=== PATIENT | male | born 1990 | race African-American/Black ===

== ENCOUNTER 2023-07-19 11:52 | Inpatient (IN) | payer OTHER ==
[2023-07-19] MEDS ORDERED: ACETAMINOPHEN 325 MG TABLET (FP) PO PRN (12:46)
[2023-07-19] MEDS ORDERED: guaiFENesin 600 MG TABLET.ER (FP) PO PRN (12:46)
[2023-07-19] MEDS ORDERED: BISMUTH SUBSALICYLATE 262 MG/15 ML BTL PO PRN (12:46)
[2023-07-19] MEDS ORDERED: BENZONATATE 200 MG CAPSULE PO PRN (12:46)
[2023-07-19] MEDS ORDERED: METHOCARBAMOL 500 MG TABLET PO PRN (12:46)
[2023-07-19] MEDS ORDERED: IBUPROFEN 600 MG TABLET (FP) PO PRN (12:46)
[2023-07-19] MEDS ORDERED: IBUPROFEN 400 MG TABLET (FP) PO PRN (12:46)
[2023-07-19] MEDS ORDERED: NALOXONE HCL (KLOXXADO) 8 MG SPRAY NS PRN (12:46)
[2023-07-19] MEDS ORDERED: MAGNESIUM HYDROX 2400MG/30ML ORAL SUSPENSION 30 ML CUP PO PRN (12:46)
[2023-07-19] MEDS ORDERED: LOPERAMIDE HCL 2 MG CAPSULE PO PRN (12:46)
[2023-07-19] MEDS ORDERED: NALOXONE HCL 0.4 MG/ML VIAL IM PRN (12:46)
[2023-07-19] MEDS ORDERED: BENZOCAINE/MENTHOL (CHLORASEPTIC ) LOZENGE MM PRN (12:46)
[2023-07-19] MEDS ORDERED: ONDANSETRON *ODT* 4 MG TABLET SL PRN (12:46)
[2023-07-19] MEDS ORDERED: MAG HYDROX/AL HYDROX/SIMETH 30 ML UNIT-DOSE CUP PO PRN (12:46)
[2023-07-19] MEDS ORDERED: POLYETHYLENE GLYCOL (HEALTHYLAX) 3350 17 GM PACKET PO PRN (12:46)
[2023-07-19] MEDS ORDERED: chlordiazePOXIDE HCL 25 MG CAPSULE PO PRN (12:48)
[2023-07-19 16:05] VITALS: BMI 24.5
[2023-07-19] MEDS: chlordiazePOXIDE HCL 25 MG CAPSULE PO SCH ×2 (17:04→22:09)
[2023-07-19] MEDS: THIAMINE HCL 100 MG TABLET (FP) PO SCH (22:09)
[2023-07-19] MEDS: MELATONIN 5 MG TABLETS PO SCH (22:09)
[2023-07-20] MEDS: chlordiazePOXIDE HCL 25 MG CAPSULE PO SCH ×4 (05:33→22:15)
[2023-07-20] MEDS: PRENATAL VITAMINS W/ FOLIC ACID TABLET (FP) PO SCH (10:20)
[2023-07-20 10:37] LABS: POTASSIUM 3.5 mmol/L (3.5-5.1)
[2023-07-20 10:44] LABS: HEMATOCRIT 37.5 % (35.4-49); HEMOGLOBIN 12.7 GM/dL (11.7-16.9); MCH 36.6 pg (25.7-33.7); MCHC 33.9 g/dl (32.0-35.9); MEAN CELL VOLUME 107.9 fl (80-96); MEAN PLT VOLUME 8.4 fl (7.5-11.1); PLATELET COUNT 145 10^3/uL (134-434); RBC 3.47 M/mm3 (4.00-5.60); RDW 16.9 % (11.9-15.9); WHITE BLOOD COUNT 5.3 K/mm3 (4.0-10.0)
[2023-07-20 10:59] LABS: ALBUMIN 3.9 g/dl (3.4-5.0)
[2023-07-20 11:01] LABS: BILIRUBIN,TOTAL 1.1 mg/dL (0.2-1)
[2023-07-20] MEDS: amLODIPine BESYLATE 2.5 MG TABLET (FP) PO SCH (11:01)
[2023-07-20 11:02] LABS: BLOOD UREA NITROGEN 8.4 mg/dL (7-18); CALCIUM 9.1 mg/dL (8.5-10.1); CREATININE 0.8 mg/dL (0.55-1.3)
[2023-07-20] MEDS: hydrOXYzine PAMOATE 25 MG CAPSULE (FP) PO PRN (11:03)
[2023-07-20 11:10] LABS: TOT PROT 7.3 g/dl (6.4-8.2)
[2023-07-20] MEDS: THIAMINE HCL 100 MG TABLET (FP) PO SCH (22:15)
[2023-07-20] MEDS: MELATONIN 5 MG TABLETS PO SCH (22:15)
[2023-07-21] MEDS ORDERED: chlordiazePOXIDE HCL 25 MG CAPSULE PO SCH (05:00)
[2023-07-21] MEDS ORDERED: LORazepam 1 MG TABLET PO PRN (09:47)
[2023-07-21] MEDS: amLODIPine BESYLATE 2.5 MG TABLET (FP) PO SCH (10:10)
[2023-07-21] MEDS: hydrOXYzine PAMOATE 25 MG CAPSULE (FP) PO PRN ×2 (10:10→18:25)
[2023-07-21] MEDS: PRENATAL VITAMINS W/ FOLIC ACID TABLET (FP) PO SCH (10:10)
[2023-07-21] MEDS: LORazepam 2 MG TABLET PO SCH ×4 (10:10→23:04)
[2023-07-21] MEDS: MELATONIN 5 MG TABLETS PO SCH (22:03)
[2023-07-21] MEDS: THIAMINE HCL 100 MG TABLET (FP) PO SCH (22:03)
[2023-07-22] MEDS ORDERED: chlordiazePOXIDE HCL 10 MG CAPSULE PO PRN
[2023-07-22] MEDS ORDERED: chlordiazePOXIDE HCL 10 MG CAPSULE PO SCH (05:00)
[2023-07-22] MEDS: LORazepam 1 MG TABLET PO SCH ×3 (05:55→17:30)
[2023-07-22] MEDS: hydrOXYzine PAMOATE 25 MG CAPSULE (FP) PO PRN (10:18)
[2023-07-22] MEDS: amLODIPine BESYLATE 2.5 MG TABLET (FP) PO SCH (10:19)
[2023-07-22] MEDS: PRENATAL VITAMINS W/ FOLIC ACID TABLET (FP) PO SCH (10:19)
[2023-07-22 18:10] VITALS: BP 123/75; PULSE 66; RESP 16; TEMP 97.8
[2023-07-23] MEDS ORDERED: LORazepam 0.5 MG TABLET PO PRN
[2023-07-23] MEDS ORDERED: LORazepam 0.5 MG TABLET PO SCH (05:00)
[2023-07-23] MEDS ORDERED: chlordiazePOXIDE HCL 10 MG CAPSULE PO SCH (05:00)
[2023-07-24] MEDS ORDERED: LORazepam 0.5 MG TABLET PO ONE (05:00)
[2023-07-24] MEDS ORDERED: chlordiazePOXIDE HCL 10 MG CAPSULE PO ONE (05:00)
== END 2023-07-22 17:55 | disposition left against medical advice (07) | DRG 770 ==
LOC: YASAS 11:52 → Y6N 13:38
PROVIDERS: ADMIT Allergy & Immunology; ATTEND Surgery
PROC: HZ2ZZZZ Detoxification Services for Substance Abuse Treatment (ICD-10-PCS; principal; 2023-07-19)
DX: F10.230 Alcohol dependence with withdrawal, uncomplicated (principal); F12.20 Cannabis dependence, uncomplicated; F10.282 Alcohol dependence with alcohol-induced sleep disorder; I10 Essential (primary) hypertension; Z28.310 Unvaccinated for COVID-19; Z28.9 Immunization not carried out for unspecified reason; Z91.410 Personal history of adult physical and sexual abuse
CPT/HCPCS: 36415; 80053; 80307; 85027; 86780; 87635; 87811; 93005; 93010

== ENCOUNTER 2023-07-25 18:12 | Inpatient (IN) | payer OTHER ==
[2023-07-25 18:37] VITALS: BMI 24.4
[2023-07-25] MEDS ORDERED: POLYETHYLENE GLYCOL (HEALTHYLAX) 3350 17 GM PACKET PO PRN (19:56)
[2023-07-25] MEDS ORDERED: LOPERAMIDE HCL 2 MG CAPSULE PO PRN (19:56)
[2023-07-25] MEDS ORDERED: BENZOCAINE/MENTHOL (CHLORASEPTIC ) LOZENGE MM PRN (19:56)
[2023-07-25] MEDS ORDERED: IBUPROFEN 400 MG TABLET (FP) PO PRN (19:56)
[2023-07-25] MEDS ORDERED: MAGNESIUM HYDROX 2400MG/30ML ORAL SUSPENSION 30 ML CUP PO PRN (19:56)
[2023-07-25] MEDS ORDERED: guaiFENesin 600 MG TABLET.ER (FP) PO PRN (19:56)
[2023-07-25] MEDS ORDERED: BENZONATATE 200 MG CAPSULE PO PRN (19:56)
[2023-07-25] MEDS ORDERED: DOCUSATE SODIUM 100 MG CAPSULE (FP) PO PRN (19:56)
[2023-07-25] MEDS ORDERED: COLLOIDAL OATMEAL 1 BAR EACH TP PRN (19:56)
[2023-07-25] MEDS ORDERED: ACETAMINOPHEN 325 MG TABLET (FP) PO PRN (19:56)
[2023-07-25] MEDS ORDERED: MAG HYDROX/AL HYDROX/SIMETH 30 ML UNIT-DOSE CUP PO PRN (19:56)
[2023-07-25] MEDS ORDERED: P-EPHED 60MG/TRIPROLIDI 2.5MG TABLET PO PRN (19:56)
[2023-07-25] MEDS ORDERED: IBUPROFEN 400 MG TABLET (FP) PO ONE (21:08)
[2023-07-25] MEDS: THIAMINE HCL 100 MG TABLET (FP) PO SCH (22:58)
[2023-07-25] MEDS: MELATONIN 5 MG TABLETS PO SCH (22:58)
[2023-07-25] MEDS ORDERED: MELATONIN 5 MG TABLETS ONE (23:00)
[2023-07-26] MEDS: IBUPROFEN 600 MG TABLET (FP) PO PRN ×2 (09:12→17:09)
[2023-07-26] MEDS: METHOCARBAMOL 500 MG TABLET PO PRN (09:13)
[2023-07-26] MEDS: PRENATAL VITAMINS W/ FOLIC ACID TABLET (FP) PO SCH (09:13)
[2023-07-26] MEDS: hydrOXYzine PAMOATE 25 MG CAPSULE (FP) PO PRN ×2 (09:14→21:24)
[2023-07-26] MEDS: THIAMINE HCL 100 MG TABLET (FP) PO SCH (21:23)
[2023-07-26] MEDS: MELATONIN 5 MG TABLETS PO SCH (21:23)
[2023-07-27] MEDS: PRENATAL VITAMINS W/ FOLIC ACID TABLET (FP) PO SCH (09:57)
[2023-07-27] MEDS: METHOCARBAMOL 500 MG TABLET PO PRN ×2 (09:58→21:19)
[2023-07-27] MEDS: hydrOXYzine PAMOATE 25 MG CAPSULE (FP) PO PRN (09:58)
[2023-07-27] MEDS: THIAMINE HCL 100 MG TABLET (FP) PO SCH (21:19)
[2023-07-27] MEDS: MELATONIN 5 MG TABLETS PO SCH (21:19)
[2023-07-28 08:26] LABS: POTASSIUM 3.9 mmol/L (3.5-5.1)
[2023-07-28 08:28] LABS: CALCIUM 9.1 mg/dL (8.5-10.1)
[2023-07-28 08:29] LABS: ALBUMIN 3.2 g/dl (3.4-5.0)
[2023-07-28 08:32] LABS: CREATININE 0.7 mg/dL (0.55-1.3); HEMOGLOBIN 11.3 GM/dL (11.7-16.9); MCH 36.7 pg (25.7-33.7); MCHC 33.3 g/dl (32.0-35.9); MEAN CELL VOLUME 110.2 fl (80-96); MEAN PLT VOLUME 7.9 fl (7.5-11.1); PLATELET COUNT 365 10^3/uL (134-434); RBC 3.09 M/mm3 (4.00-5.60); WHITE BLOOD COUNT 6.1 K/mm3 (4.0-10.0)
[2023-07-28 08:33] LABS: TOT PROT 6.4 g/dl (6.4-8.2)
[2023-07-28 08:34] LABS: BILIRUBIN,TOTAL 0.3 mg/dL (0.2-1)
[2023-07-28 09:17] LABS: ANISOCYTOSIS 0; MACROCYTOSIS 2+
[2023-07-28] MEDS: PRENATAL VITAMINS W/ FOLIC ACID TABLET (FP) PO SCH (09:59)
[2023-07-28] MEDS: MELATONIN 5 MG TABLETS PO SCH (21:21)
[2023-07-28] MEDS: THIAMINE HCL 100 MG TABLET (FP) PO SCH (21:21)
[2023-07-28] MEDS: METHOCARBAMOL 500 MG TABLET PO PRN (21:21)
[2023-07-29] MEDS: PRENATAL VITAMINS W/ FOLIC ACID TABLET (FP) PO SCH (09:57)
[2023-07-29] MEDS: FERROUS SO4 325 MG TABLET (FP) PO SCH (09:57)
[2023-07-29] MEDS: LACTULOSE 20 GM/30 ML UDC (FOR ORAL USE ONLY) PO SCH ×2 (14:38→21:28)
[2023-07-29] MEDS: MELATONIN 5 MG TABLETS PO SCH (21:28)
[2023-07-29] MEDS: THIAMINE HCL 100 MG TABLET (FP) PO SCH (21:28)
[2023-07-30] MEDS: LACTULOSE 20 GM/30 ML UDC (FOR ORAL USE ONLY) PO SCH ×3 (06:39→21:18)
[2023-07-30] MEDS: PRENATAL VITAMINS W/ FOLIC ACID TABLET (FP) PO SCH (09:52)
[2023-07-30] MEDS: FERROUS SO4 325 MG TABLET (FP) PO SCH (09:52)
[2023-07-30] MEDS: THIAMINE HCL 100 MG TABLET (FP) PO SCH (21:18)
[2023-07-30] MEDS: MELATONIN 5 MG TABLETS PO SCH (21:18)
[2023-07-31] MEDS: LACTULOSE 20 GM/30 ML UDC (FOR ORAL USE ONLY) PO SCH ×3 (06:46→21:26)
[2023-07-31] MEDS: FERROUS SO4 325 MG TABLET (FP) PO SCH (09:15)
[2023-07-31] MEDS: PRENATAL VITAMINS W/ FOLIC ACID TABLET (FP) PO SCH (09:15)
[2023-07-31] MEDS: THIAMINE HCL 100 MG TABLET (FP) PO SCH (21:26)
[2023-07-31] MEDS: MELATONIN 5 MG TABLETS PO SCH (21:26)
[2023-08-01] MEDS: LACTULOSE 20 GM/30 ML UDC (FOR ORAL USE ONLY) PO SCH ×3 (06:47→21:15)
[2023-08-01] MEDS: PRENATAL VITAMINS W/ FOLIC ACID TABLET (FP) PO SCH (09:48)
[2023-08-01] MEDS: FERROUS SO4 325 MG TABLET (FP) PO SCH (09:48)
[2023-08-01] MEDS: hydrOXYzine PAMOATE 25 MG CAPSULE (FP) PO PRN (14:07)
[2023-08-01] MEDS: THIAMINE HCL 100 MG TABLET (FP) PO SCH (21:15)
[2023-08-01] MEDS: MELATONIN 5 MG TABLETS PO SCH (21:15)
[2023-08-02] MEDS: LACTULOSE 20 GM/30 ML UDC (FOR ORAL USE ONLY) PO SCH ×3 (07:00→21:55)
[2023-08-02] MEDS: PRENATAL VITAMINS W/ FOLIC ACID TABLET (FP) PO SCH (09:47)
[2023-08-02] MEDS: FERROUS SO4 325 MG TABLET (FP) PO SCH (09:47)
[2023-08-02] MEDS: MELATONIN 5 MG TABLETS PO SCH (21:55)
[2023-08-02] MEDS: THIAMINE HCL 100 MG TABLET (FP) PO SCH (21:55)
[2023-08-03] MEDS: LACTULOSE 20 GM/30 ML UDC (FOR ORAL USE ONLY) PO SCH ×3 (06:26→21:10)
[2023-08-03] MEDS: PRENATAL VITAMINS W/ FOLIC ACID TABLET (FP) PO SCH (09:37)
[2023-08-03] MEDS: FERROUS SO4 325 MG TABLET (FP) PO SCH (09:37)
[2023-08-03] MEDS: MELATONIN 5 MG TABLETS PO SCH (21:10)
[2023-08-03] MEDS: THIAMINE HCL 100 MG TABLET (FP) PO SCH (21:10)
[2023-08-04] MEDS: LACTULOSE 20 GM/30 ML UDC (FOR ORAL USE ONLY) PO SCH ×3 (06:28→21:11)
[2023-08-04] MEDS: FERROUS SO4 325 MG TABLET (FP) PO SCH (10:17)
[2023-08-04] MEDS: PRENATAL VITAMINS W/ FOLIC ACID TABLET (FP) PO SCH (10:17)
[2023-08-04] MEDS: THIAMINE HCL 100 MG TABLET (FP) PO SCH (21:11)
[2023-08-04] MEDS: MELATONIN 5 MG TABLETS PO SCH (21:11)
[2023-08-05] MEDS: LACTULOSE 20 GM/30 ML UDC (FOR ORAL USE ONLY) PO SCH ×3 (06:38→21:17)
[2023-08-05] MEDS: FERROUS SO4 325 MG TABLET (FP) PO SCH (10:00)
[2023-08-05] MEDS: PRENATAL VITAMINS W/ FOLIC ACID TABLET (FP) PO SCH (10:00)
[2023-08-05] MEDS: THIAMINE HCL 100 MG TABLET (FP) PO SCH (21:17)
[2023-08-05] MEDS: MELATONIN 5 MG TABLETS PO SCH (21:17)
[2023-08-06] MEDS: LACTULOSE 20 GM/30 ML UDC (FOR ORAL USE ONLY) PO SCH ×3 (06:40→21:33)
[2023-08-06] MEDS: FERROUS SO4 325 MG TABLET (FP) PO SCH (09:52)
[2023-08-06] MEDS: PRENATAL VITAMINS W/ FOLIC ACID TABLET (FP) PO SCH (09:52)
[2023-08-06] MEDS: THIAMINE HCL 100 MG TABLET (FP) PO SCH (21:33)
[2023-08-06] MEDS: MELATONIN 5 MG TABLETS PO SCH (21:33)
[2023-08-07] MEDS: LACTULOSE 20 GM/30 ML UDC (FOR ORAL USE ONLY) PO SCH ×3 (06:23→21:19)
[2023-08-07] MEDS: FERROUS SO4 325 MG TABLET (FP) PO SCH (09:41)
[2023-08-07] MEDS: PRENATAL VITAMINS W/ FOLIC ACID TABLET (FP) PO SCH (09:41)
[2023-08-07] MEDS: THIAMINE HCL 100 MG TABLET (FP) PO SCH (21:19)
[2023-08-07] MEDS: MELATONIN 5 MG TABLETS PO SCH (21:19)
[2023-08-08] MEDS: LACTULOSE 20 GM/30 ML UDC (FOR ORAL USE ONLY) PO SCH (06:23)
[2023-08-08 06:57] VITALS: BP 108/73; PULSE 77; RESP 17; TEMP 97.6
[2023-08-08] MEDS: PRENATAL VITAMINS W/ FOLIC ACID TABLET (FP) PO SCH (09:21)
[2023-08-08] MEDS: FERROUS SO4 325 MG TABLET (FP) PO SCH (09:21)
== END 2023-08-08 09:45 | disposition home or self-care (01) | DRG 772 ==
LOC: YASAS 18:12 → Y3E 23:35
PROVIDERS: ADMIT Allergy & Immunology; ATTEND Psychiatry & Neurology Pain Medicine
PROC: HZ42ZZZ Group Counseling for Substance Abuse Treatment, Cognitive-Behavioral (ICD-10-PCS; principal; 2023-07-25)
DX: F10.20 Alcohol dependence, uncomplicated (principal); F12.20 Cannabis dependence, uncomplicated; F10.282 Alcohol dependence with alcohol-induced sleep disorder; E72.20 Disorder of urea cycle metabolism, unspecified; D64.9 Anemia, unspecified; R74.01 Elevation of levels of liver transaminase levels; M25.552 Pain in left hip; Z99.89 Dependence on other enabling machines and devices; Z28.310 Unvaccinated for COVID-19; Z28.9 Immunization not carried out for unspecified reason
CPT/HCPCS: 0241U-QW; 36415; 80053; 82140; 82607; 82652; 82746; 82962; 83735; 85025; 86803; 87635; 87811